=== PATIENT | male | born 1980 | race African-American/Black ===

== ENCOUNTER 2021-07-25 05:15 | Emergency (ER) | payer MEDICAID, OTHER ==
[~2021-07-25] VITALS: Ht 170.2 cm; Wt 90.7 kg
[2021-07-25] MEDS ORDERED: ONDANSETRON ODT 4 MG TAB PO ONE (06:30)
[2021-07-25] MEDS ORDERED: HYDROcodone-ACET 10/325MG TAB PO ONE (06:30)
[2021-07-25] MEDS ORDERED: CYCL-837 PO (07:04)
[2021-07-25] MEDS ORDERED: ACE3T PO (07:04)
[2021-07-25] MEDS ORDERED: KETOROLAC TROMETH 60MG/2ML VIAL IM ONE (08:00)
[2021-07-25 09:35] VITALS: BP 114/84
== END 2021-07-25 09:50 | disposition home or self-care (01) ==
LOC: ER 05:15 → EDSEX 05:15 → EDBD 05:15 → ER 09:49
DX: S93.129A Dislocation of metatarsophalangeal joint of unspecified toe(s), initial encounter (principal); S62.112A Displaced fracture of triquetrum [cuneiform] bone, left wrist, initial encounter for closed fracture; S92.324A Nondisplaced fracture of second metatarsal bone, right foot, initial encounter for closed fracture; S92.334A Nondisplaced fracture of third metatarsal bone, right foot, initial encounter for closed fracture; S39.012A Strain of muscle, fascia and tendon of lower back, initial encounter; V43.52XA Car driver injured in collision with other type car in traffic accident, initial encounter; Y93.89 Activity, other specified; Y92.89 Other specified places as the place of occurrence of the external cause; Y99.8 Other external cause status
CPT/HCPCS: 26770; 29125; 72131; 73110; 73130; 73630; 96372; 99284; J1885; Q0162